=== PATIENT | female | born 1960 | race Caucasian/White ===

== ENCOUNTER → 2019-07-27 | Outpatient (CLI) | payer OTHER | LOC: MRI 07:02 | DX: M47.26 Other spondylosis with radiculopathy, lumbar region (principal); M46.06 Spinal enthesopathy, lumbar region; M48.061 Spinal stenosis, lumbar region without neurogenic claudication; M48.05 Spinal stenosis, thoracolumbar region ==

== ENCOUNTER → 2019-09-04 | Outpatient (CLI) | payer OTHER ==
[~2019-09-04] VITALS: Ht 162.6 cm; Wt 65.8 kg
[~2019-09-04] MED LIST: ADVIL200 M1 PO; ESOMEPRAZOLE MA20 MG PO; LYRICA 50 MG50 MG PO; MULTIVITAMINS1 EAC7 PO; NABUMETONE 500500 M1 PO; NORCO 5-325 TA1 EAC1 PO; PAROXETINE ER12.5 M2 PO; TOPROL XL50 MG PO
[2019-09-04 14:38] VITALS: BP 121/71
--- NOTE | 2019-09-04 14:49 | NUR ---
Pain Clinic Assessment: 1. History of Osteoarthritis: DENIES History of Rheumatoid Arthritis: DENIES 2. Height: 5 ft. 4 in. 162.6 cm. Weight: 145.0 lb. oz. 65.772 kg. Patient's BMI: 24.9 3. Vital Signs: BP: 121/71 Pulse: 56 Resp: 14 Temp: 02 Sat: 100 ECG Mon: 4. Pain Intensity: 7 5. Fall Risk: Dizziness: N Needs help standing or walking: N Fallen in the last 3 months: N Fall risk comments: 6. Patient on Blood Thinner: None 7. History of Hypertension: N 8. Opioid Therapy greater than 6 weeks: N Opiate Contract Signed: 9. Risk Assessment Tool Provided: 0=LOW 10. Functional Assessment Tool: 11. Recreational Drug Use: Never Drug Type: Tobacco Use: Never Smoker Tobacco Type: Amount or Packs/day: How Many Years: Alcohol Use: Yes Frequency: Weekly Quant:
--- NOTE | 2019-09-11 12:56 | HPC ---
[facility] [address] [address] PAIN MANAGEMENT CONSULTATION Name: SHARI JADE Room #: REG [facility] Tristan.#: [id number] Admission: 09/04/19 Attend Phys: Boaz Phoenix DO Discharge: Date of : 62 Report #: [id number] THIS REPORT FOR: //name// CC: Jorge Luis Epperson DATE OF SERVICE: 09/04/2019 CHIEF COMPLAINT: Axial back pain. HISTORY OF PRESENT ILLNESS: As you know, the patient is a 59-year-old female referred to our service for axial back pain. The patient states her pain began 07/12/2019. She denies any specific injury or trauma that may have led to symptom development. She indicates she has tried ibuprofen and heat, which was somewhat beneficial for pain control, but did not provide any prolonged improvement in symptoms. She has trialled home stretching exercises without much benefit. She was given a Medrol Dosepak, which improved her pain while she was on the medication, but as soon as she came off the medication, her symptoms did return. She was subsequently sent for MRI of the lumbar spine on 07/27/2019, which showed some mild degenerative changes and the patient was then referred to our clinic to discuss treatment options for mild arthritic changes typical for a 59-year-old female. The patient indicates pain is continuous, describes the pain as shooting, aching and throbbing, places current pain score at 7/10, daily average at 7/10, worst pain has been is 10/10. The patient states that sitting or moving in certain ways exacerbates symptoms, heating pad, ibuprofen and previous steroid exposures provided good benefit. She has been referred to our clinic to discuss treatment options for axial back pain. PAST MEDICAL HISTORY: 1. Gastroesophageal reflux disease. 2. Hypertension. 3. Anxiety. PAST SURGICAL HISTORY: 1. Hysterectomy. 2. Septoplasty. 3. Left foot surgery. SOCIAL HISTORY: The patient denies tobacco, IV or illicit drug use. Admits to 3 alcoholic beverages per week. 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 She is working, not receiving workmen's compensation or is trying to obtain discrete [facility] [address] [place] [address] PAIN MANAGEMENT CONSULTATION Name: SHARI JADE Room #: REG [facility] M.R.#: [id number] Admission: 09/04/19 Attend Phys: Boaz Phoenix DO Discharge: Date of : 62 Report #: [id number] benefits. She is not in litigation in regards to pain. She is accompanied by her present in room today. REVIEW OF SYSTEMS: Positive for wearing corrective eyewear, anxiety disorder causing palpitations, nocturia, GERD and hypertension. All other review of systems negative per 12-point review of systems other than those listed in history of present illness. Pain impact score 31/70 indicating moderate interference of daily activities secondary to pain. ALLERGIES: NO REPORTED DRUG ALLERGIES. CURRENT MEDICATIONS: Omeprazole 20 mg once a day, multivitamin 1 tab per day, hydrocodone/acetaminophen 5/325 one tab every 6 hours p.r.n. for pain, ibuprofen 200 mg 2 tabs 4 times a day, metoprolol 50 mg per day, paroxetine 12.5 mg once a day. IMAGING: MRI of the lumbar spine obtained 07/27/2019 shows L1-L2 unremarkable. L2-L3 shows no focal disk protrusion, minor disk bulging, no central canal neural foraminal stenosis. L3-L4, no focal disk protrusion, central canal or neural foraminal stenosis. There is mild facet degenerative changes. L4-L5, no focal central canal or neural foraminal stenosis, only mild degenerative changes. L5-S1, no focal disk protrusion, central canal or neural foraminal stenosis, only mild degenerative changes. PHYSICAL EXAMINATION: VITAL SIGNS: Blood pressure 121/71, pulse 56, respiratory rate 14 and unlabored. The patient is 100% on room air. Height 5 feet 4 inches tall, weight 145 pounds, BMI calculated 24.9. GENERAL: Well-developed, well-nourished, well-hydrated 59-year-old female, appearing stated age, placing current pain score around 7/10. HEENT: Normocephalic, atraumatic. Pupils equal, round, reactive to light. Extraocular muscles are intact. Sclerae nonicteric without injection. NEUROLOGIC: Speech is fluent. The patient deemed a good historian. LUNGS: Clear, no wheeze, rhonchi or rales. CARDIOVASCULAR: Regular. No appreciable gallop, no rub. ABDOMEN: Soft, nontender, nondistended, normoactive bowel sounds. EXTREMITIES: Show no clubbing, no cyanosis, no edema. MUSCULOSKELETAL: There is some palpatory tenderness over the paraspinal musculature of lower lumbar spine. This appears to be directly over the facet joints of the lower lumbar region L4-L5 and L5-S1 with right greater than left. Seated straight leg raising negative. Supine straight leg raising negative. Khai's test is negative. Modified Gaenslen's positive for some axial back pain. Ankle clonus negative. Babinski is negative. Muscle bulk and tone equal and symmetrical in lower extremities. She is intact to light touch from L1 [address] [address] PAIN MANAGEMENT CONSULTATION Name: SHARI JADE Room #: REG [facility].#: [id number] Admission: 09/04/19 Attend Phys: Boaz Phoenix DO Discharge: Date of : 62 Report #: [id number] through S2 dermatomes. Lumbar provocation testing including extension, rotation and lateral flexion does intensify axial back pain, no radiation of symptoms. ASSESSMENT: 1. Lumbosacral spondylosis without radiculopathy. 2. Mild facet arthropathy of the lumbar spine. 3. Chronic intractable pain. PLAN: 1. Based on today's physical exam and the history the patient has provided, the description the patient uses in regards to pain as well as the location of symptoms and the lack of any significant findings in the lumbar spine except for facet arthropathy, there is noted to be mild, likely source of the patient's pain is the facet joints of the lower lumbar region. We discussed with the patient the treatment options available for mild facet arthropathy today, the following was discussed with the patient. We discussed physical therapy, stretching exercises, core strengthening as the goal standard treatment for mild facet arthropathy of the lumbar spine. We discussed medication management utilizing anti-inflammatory medications and the possible addition of a neuropathic medication to assist in any radicular component that she may experience on an as needed basis. We discussed intra-articular facet injections, medial branch nerve blocks and radiofrequency lesioning as possible treatment options as well, though these aggressive treatments are not going to be recommended initially without trying all conservative treatment options initially. After reviewing the risks and benefits of all proposed treatment options, the patient chose to begin with an anti-inflammatory medication, neuropathic medication and home stretching exercise. 2. The patient will be started on nabumetone 500 mg dose 1 tab p.o. t.i.d. I have given the patient #90 tablets, advised the patient to take the medication with meals. She is to watch for dyspepsia, worsening of blood pressure, lower extremity edema with use of medication. If she notes any side effects, discontinue immediately, call for further instructions. The patient was given this prescription with two refills essentially 3 months' worth of medication. We have advised the patient once her pain does begin to improve, she is to reduce the dose to 2 times a day. If pain continues to improve, then down to one dose a day. If pain has continued to be improved, then off the medication entirely and only use it when her symptoms do return. 3. We will start the patient on Lyrica 50 mg dose 1 tab p.o. at bedtime for 7 nights and then increase 1 tab p.o. b.i.d. I have given the patient #60 tablets with no refills. She was advised to take the medication as directed. She was given 60 tablets and for an initial dosing. The patient is to watch for side effects of sleepiness, disorientation, confusion, mental slowing with the use of medication. If she notes any side effects, contact our clinic. [address] [address] PAIN MANAGEMENT CONSULTATION Name: SHARI JADE Room #: REG [facility]#: [id number] Admission: 09/04/19 Attend Phys: Boaz Phoenix DO Discharge: Date of : 62 Report #: [id number] 4. We will see the patient back in followup visit in approximately one month. We are hopeful the patient will see good and prolonged benefit with the medication changes provided today and the suggestions of home exercise and stretching programs that she should initiate immediately. 5. We wish to thank the referring nurse practitioner, Jorge Luis Tirado and Dr. Nick Epperson for the opportunity to see the patient in consultation. We will keep you apprised of response to treatment as we address mild facet degenerative changes of the lumbar spine. Again, we wish to thank you for the opportunity to see the patient in consultation. <ELECTRONICALLY SIGNED> By: Boaz Phoenix DO 09/11/19 [id number] Boaz Phoenix DO /nt
== END ==
LOC: PAIN 07:01
DX: M47.817 Spondylosis without myelopathy or radiculopathy, lumbosacral region (principal); M12.88 Other specific arthropathies, not elsewhere classified, other specified site; G89.4 Chronic pain syndrome

== ENCOUNTER → 2019-10-23 | Outpatient (CLI) | payer OTHER | END | disposition home or self-care (01) | LOC: SJCVCIMAG 08:26 | DX: I83.93 Asymptomatic varicose veins of bilateral lower extremities (principal); M79.605 Pain in left leg; M79.604 Pain in right leg ==

== ENCOUNTER → 2019-11-05 | Outpatient (CLI) | payer OTHER | LOC: CAT 13:02 | DX: K80.20 Calculus of gallbladder without cholecystitis without obstruction (principal); M47.819 Spondylosis without myelopathy or radiculopathy, site unspecified; N28.1 Cyst of kidney, acquired; Z90.710 Acquired absence of both cervix and uterus ==

== ENCOUNTER → 2020-07-14 | Outpatient (CLI) | payer OTHER ==
[2020-07-14 09:14] LABS: ABSOLUTE NEUTROPHILS 2.1 thou/uL (1.4-8.2); BASOPHILS 1.3 % (0.0-2.0); HEMATOCRIT 41.2 % (37.0-47.0); HEMOGLOBIN 13.8 gm/dL (12.0-15.0); LYMPHOCYTES 33.1 % (24.0-44.0); MCH 32.2 pg (26.0-34.0); MCHC 33.6 g/dL (28.0-37.0); MCV 95.9 fL (80.0-100.0); MONOCYTES 11.7 % (1.0-8.0); PLATELET COUNT 323 thou/uL (150-400); POLYS 48.9 % (36.0-66.0); RBC 4.29 mil/uL (4.20-5.00); RDW 12.5 % (10.5-14.5); WBC 4.4 thou/uL (4.0-11.0)
[2020-07-14 09:33] LABS: ALBUMIN 4.2 g/dL (3.4-5.0); ANION GAP 10 mmol/L (7-16); BUN 13 mg/dL (7-18); CALCIUM 9.3 mg/dL (8.5-10.1); CHLORIDE 104 mmol/L (98-107); CHOLESTEROL 223 mg/dL (<200); CO2 26 mmol/L (21-32); CREATININE 0.9 mg/dL (0.6-1.0); GLUCOSE 93 mg/dL (74-106); HDL CHOLESTEROL 77 mg/dL (>40); LDL CHOLESTEROL 123 mg/dL (<100); POTASSIUM 4.2 mmol/L (3.5-5.1); SGOT 24 U/L (15-37); SGPT 30 U/L (30-65); SODIUM 140 mmol/L (136-145); TC:HDL 2.9 Ratio (Not establshd); TOTAL PROTEIN 7.7 g/dL (6.4-8.2); TRIGLYCERIDE 117 mg/dL (<150); VLDL 23 mg/dL (<40)
== END ==
LOC: LAB 07:09
PROVIDERS: ATTEND Nurse Practitioner
DX: I10 Essential (primary) hypertension (principal)

== ENCOUNTER → 2020-07-18 | Outpatient (CLI) | payer OTHER | LOC: CAT 12:54 | PROVIDERS: ATTEND Internal Medicine Cardiovascular Disease | DX: Z13.6 Encounter for screening for cardiovascular disorders (principal); I25.10 Atherosclerotic heart disease of native coronary artery without angina pectoris; E78.00 Pure hypercholesterolemia, unspecified ==

== ENCOUNTER → 2020-09-24 | Outpatient (CLI) | payer OTHER | LOC: BC 08:17 | PROVIDERS: ATTEND Family Medicine | DX: Z12.31 Encounter for screening mammogram for malignant neoplasm of breast (principal); N60.82 Other benign mammary dysplasias of left breast; N60.81 Other benign mammary dysplasias of right breast ==